=== PATIENT | female | born 1980 | race Caucasian/White ===

== ENCOUNTER → 2020-05-09 09:59 | Outpatient (CLI) | payer OTHER, SELFPAY ==
--- NOTE | ~2020-05-09 | CT_ITS ---
EXAMINATION: CT soft tissue neck w con EXAM DATE: 05/09/2020 12:03 INDICATION: RT side swelling/ mass/ lump of neck marked with tabs. TECHNIQUE: Spiral CT of the neck was performed following intravenous injection of 75 mL Omnipaque 350 . Axial, coronal and sagittal images were reviewed. The dose-length product (DLP) for this examinat ion was 433.54 mGy-cm. The exposure was tailored according to patient size (auto mA exposure control ), and iterative reconstruction (ASIR) was used as additional dose reduction technique. There is no prior study for comparison. FINDINGS: Right posterior lateral neck externally placed marker with normal-appearing underlying subc utaneous fat, musculature. The thyroid gland is unremarkable. The submandibular and parotid glands are symmetric. There is no cervical lymphadenopathy. There are no masses identified. The super ior mediastinum is unremarkable. The airway is unremarkable. Parapharyngeal and pre-glottic fat p lanes are preserved. The opacified vasculature is patent. The orbits are unremarkable. Visualiz ed sinuses and mastoid air cells are well aerated. Lung apices are clear. There is cervical spondy losis. IMPRESSION: Unremarkable CT soft tissue neck w con exam. Reviewed, dictated and finalized at location B. RITY CHECKER
== END ==
PROVIDERS: PCP Family Medicine; Visit Provider Family Medicine
DX: R59.1 Generalized enlarged lymph nodes (principal)
CPT/HCPCS: 70491; Q9967

== ENCOUNTER 2023-05-01 10:39 | Outpatient (CLI) | payer OTHER, SELFPAY ==
--- NOTE | ~2023-05-01 | XR_ITS ---
EXAMINATION: XR shoulder LT min 2V DATE: 05/01/2023 11:12 INDICATION: Adhesive capsulitis of unspecified shoulder. TECHNIQUE: 4 views of left shoulder were obtained. COMPARISON: None. FINDINGS: Bone alignment is normal. No fracture. There is mild osteoarthritis of glenohumeral joint. Acromioclavicular joint is normal. IMPRESSION: 1. Mild left glenohumeral joint osteoarthritis. Reviewed, dictated and finalized at location E.
== END 2023-05-01 10:40 | disposition home or self-care (01) ==
PROVIDERS: PCP Family Medicine; Visit Provider Family Medicine
DX: M75.00 Adhesive capsulitis of unspecified shoulder (principal); M75.102 Unspecified rotator cuff tear or rupture of left shoulder, not specified as traumatic; M12.812 Other specific arthropathies, not elsewhere classified, left shoulder
CPT/HCPCS: 73030

== ENCOUNTER → 2023-05-19 13:31 | Outpatient (CLI) | payer OTHER, SELFPAY ==
--- NOTE | ~2023-05-19 | MM_ITS ---
EXAMINATION: MM screening dipika BI w esther HISTORY: Screening mammogram TECHNIQUE: Craniocaudal and mediolateral oblique 3-D tomosynthesis images were obtained and synthetic 2-D images were generated. CAD analysis was submitted and interpreted. COMPARISON: No prior mammogram is available for comparison at this institution. BREAST PARENCHYMAL COMPOSITION: The breasts are heterogeneously dense, which may obscure small masses . FINDINGS: RIGHT BREAST: No suspicious mass, calcification, or architectural distortion are identified to sugges t malignancy. LEFT BREAST: Asymmetry and indeterminate calcifications are present in the anterior third of the inne r breast best appreciated 5 cm from the nipple on the craniocaudal view. IMPRESSION: 1. Left breast asymmetry and calcifications which may represent the patient's baseline however no com parison is currently available. 2. Comparison with prior mammograms is necessary. BI-RADS Category 0: Incomplete: Needs comparison with prior mammograms. Reviewed, dictated and finalized at location A. STRIAL REHABILITATION CONSULTANT IMPRESSION: 1. Left breast asymmetry and calcifications which may represent the patient's b aseline however no comparison is currently available. 2. Comparison with prior mammograms is necessary. BI-RADS Category 0: Incomplete: Needs comparison with prior mammograms.
== END ==
PROVIDERS: PCP Nurse Practitioner Obstetrics & Gynecology; Visit Provider Nurse Practitioner Obstetrics & Gynecology
DX: Z12.31 Encounter for screening mammogram for malignant neoplasm of breast (principal); R92.8 Other abnormal and inconclusive findings on diagnostic imaging of breast
CPT/HCPCS: 77063; 77067

== ENCOUNTER 2023-07-09 11:06 | Emergency (ER) | payer OTHER, SELFPAY ==
[2023-07-09 11:15] VITALS: BP 120/78; PULSE 76; RESP 18; TEMP 36.1; O2SAT 100
--- NOTE | 2023-07-09 11:19 | ED.URI ---
HPI - URI/Sore Throat General Chief Complaint: Upper Respiratory Infection Stated Complaint: Sore Throat Time Seen by Provider: 07/09/23 11:37 Source: patient and RN notes reviewed Mode of arrival: ambulatory Limitations: no limitations History of Present Illness HPI Narrative: 42-year-old female presents with concern for sore throat and headache for 2 days. Reports she had chills last night. Reports she started coughing today. Reports she has tried DayQuil and NyQuil temporary relief MD elicited complaint: sore throat Related Data Home Medications Medication Instructions Recorded Confirmed levonorgestrel 21 mcg/24 hours (8 1 device intrauterine ONCE 05/01/23 07/09/23 yrs) 52 mg intrauterine device (Mirena) semaglutide (weight loss) 0.25 0.25 mg subcut WEEKLY 05/01/23 07/09/23 mg/0.5 mL subcutaneous pen injector (Wegovy) Allergies Allergy/AdvReac Type Severity Reaction Status Date / Time No Known Allergies Allergy Unverified 07/09/23 11:21 Review of Systems Review of Systems: CONSTITUTIONAL: Report malaise, chills EYES: Denies visual changes, redness, or discharge. ENT: Denies rhinorrhea, congestion, sinus pain, otalgia. Reports sore throat. CARDIOVASCULAR: Denies chest pain, palpitations, or edema. RESPIRATORY: Reports cough. Denies dyspnea. GASTROINTESTINAL: Denies abdominal pain, nausea, vomiting, diarrhea SKIN: Denies rash or itching. MUSCULOSKELETAL: Denies myalgia. NEUROLOGIC: Denies headache. All systems reviewed & are unremarkable except as noted in HPI and below PMFSH Past Medical History Medical History IUD (intrauterine device) in place Surgical History Surgical History Hx of section (~12/12/18) Family History Family History Father Heart disease Hypertension CAD (coronary artery disease) Social History Social History Social History: Smoking status: Never smoker Second hand tobacco smoke exposure: No Alcohol intake: current Alcohol use details: Occasionally Substance use: never Substance use type: does not use Lack of Transportation: No Lack of Food: Never True Current Housing: I Have Housing Concerned About Future Housing: No Difficulty Paying Gas/Electric Bills: No Difficulty Paying for Meds: No Currently Unemployed: No Education: Master's Degree or Higher Difficulty w/ Childcare or Family Care: No Living arrangements: with family Occupation/Education: occupation 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 There is no relevant family history pertinent to the presenting complaint Exam Narrative: GENERAL: Well-appearing, well-nourished, and in no acute distress. HEAD: Normocephalic EYES: PERRLA, conjunctivae clear ENT: Nares clear. Mucous membranes moist. TM pearly kebede with sharp light reflex bilaterally; no tragal tenderness. Oropharynx erythematous without lesions. Tonsils not enlarged and without exudate, no drooling, no hoarseness, no trismus, uvula midline. NECK: Supple. No lymphadenopathy CHEST: Clear to auscultation, breath sounds equal. No wheezing, rhonchi, rales, or stridor. No respiratory distress, speaks in full sentences. HEART: Regular rate and rhythm. No murmur heard. SKIN: Warm, dry, no rash. NEURO: Alert and oriented x3. PSYCH: Normal mood and affect Course Course Emergency Course: Patient is aware of diagnosis, understands and agrees to treatment plan. Anticipatory guidance given. Patient agrees to follow-up as directed and is aware of reasons to seek care at
== END 2023-07-09 11:48 | disposition home or self-care (01) ==
PROVIDERS: Emergency Provider Nurse Practitioner
DX: J06.9 Acute upper respiratory infection, unspecified (principal)
CPT/HCPCS: 87081; 87880; 99213; G0463

== ENCOUNTER 2023-09-14 08:37 | Outpatient (CLI) | payer OTHER, SELFPAY ==
--- NOTE | ~2023-09-14 | MR_ITS ---
EXAMINATION: MR shoulder LT wo con DATE: 09/14/2023 09:00 INDICATION: Left shoulder adhesive capsulitis TECHNIQUE: Magnetic resonance imaging (MRI) of the left shoulder was performed without intravenous co ntrast. Sequences included axial PD-weighted FS FSE, coronal oblique PD-weighted FS FSE, coronal obli que T2-weighted FS FSE, sagittal PD-weighted FS FSE, and sagittal T1-weighted SE. COMPARISON: Left shoulder radiographs dated 05/01/2023 FINDINGS: Coracoacromial arch: The acromion undersurface is flat in morphology (type I). The coracoacromial ligament is normal. Acro mioclavicular joint is normal. Rotator cuff: The supraspinatus, infraspinatus and teres minor tendons are normal. The subscapularis tendon is norm al. Normal rotator cuff muscle bulk and signal. Biceps tendon, glenoid labrum and glenohumeral cartilage: Long head of the biceps tendon is normal. Glenoid labrum is normal. Glenohumeral cartilage is normal. Fluid: Physiologic amount of fluid in the glenohumeral joint and biceps tendon sheath. No loose osteochondr al bodies. No abnormal increased fluid signal in the subacromial/subdeltoid bursa to suggest bursitis . Bones: Normal marrow signal with no edema, fracture or abnormal marrow replacing process. No abnormal thicke lauryn of the capsule at the axillary recess or loss of T1 fat signal at the rotator cuff interval to s uggest adhesive capsulitis which is ultimately a clinical diagnosis. IMPRESSION: 1. Unremarkable MRI of the left shoulder. Reviewed, dictated and finalized at location B.
== END 2023-09-14 08:38 | disposition home or self-care (01) ==
LOC: ANHIMG 08:41
PROVIDERS: PCP Family Medicine; Visit Provider Physician Assistant Surgical
DX: M75.02 Adhesive capsulitis of left shoulder (principal); M75.102 Unspecified rotator cuff tear or rupture of left shoulder, not specified as traumatic; M12.812 Other specific arthropathies, not elsewhere classified, left shoulder
CPT/HCPCS: 73221

== ENCOUNTER 2023-12-25 00:05 | Day surgery (SDC) | payer OTHER, SELFPAY ==
--- NOTE | 2023-12-16 16:10 | PC.NURSE ---
Report to the Outpatient Waiting Room, entrance under the green pavilion located off [facility], at time 1000 on date 12/25/23. Planned Procedure Time: 1200. Time changes happen often and if your time is changed the preop area will call you the afternoon before. - You and your visitor will be asked to self-screen and do not enter if you have any COVID symptoms. - A mask is optional within the hospital at this time. Patients may have clear liquids (water, carbonated beverages, clear teas, apple juice) until 3 hours prior to surgery with a maximum of 20 ounces. 0900 - No food from midnight until time of surgery - Infants may have breast milk until 4 hours before surgery, formula 6 hours prior to surgery. - Children will be allowed to drink immediately following surgery. If applicable, please bring a bottle or sippy cup to assist with drinking. Juice, water, soda, and popsicles are readily available. For infants on formula, please bring formula the day of surgery. Pacifiers are allowed. Take the following medications with a SIP of water the morning of surgery: None DO NOT STOP ANY OF YOUR OTHER PRESCRIPTION MEDICATIONS PRIOR TO SURGERY ?EXCEPT THE FOLLOWING Medications to discontinue per physician semaglutide- hold 10 days prior to surgery, multivitamins- hold 3 days prior to surgery Please no make-up, nail thai, hairspray, perfume, deodorant, or body powder the day of surgery. No jewelry (including any body piercings) or valuables the day of surgery, leave them at home. Please take a shower or bath the night before, or the morning of, surgery with an antibacterial soap. Wear comfortable, loose fitting clothing. Children are encouraged to wear pajamas. - Jewelry must be removed prior to entering the operating room. Rings and piercings that are not removed may be cut off. - The hospital will not accept responsibility for valuables. - Please leave all valuables, including medications, at home the day of surgery. If you are going home after surgery, a licensed industrial truck driver must drive you home. - NO public transportation without another adult if you receive anesthesia. - We recommend that an adult stay with you for 24 hours following discharge. - We also recommend that you do not drive, make important decision, drink alcoholic beverages, or take any drugs that were not prescribed by your health care provider for at least 24 hours after your discharge time. For Pediatric surgeries, we recommend two adults accompany the child home. Follow any additional instructions given to you from your surgeon. If you or anyone in your household have experienced Covid symptoms in the past week, please notify your surgeon or the nurse liaison at the phone number below for possible testing. Telephone instructions given to Patient- Wendy Tabor and asked if any additional questions and then verbalized understanding. Patient advised to call surgeon office or pre surgery nurse liaison [phone] if any additional questions.
[2023-12-16 16:16] VITALS: BMI 26.8
[2023-12-25] VITALS (8 sets, daily range): BP systolic 99–111; BP diastolic 61–75; PULSE 71–82; RESP 12–20; TEMP 36.1–36.3; O2SAT 96–100
[2023-12-25] MEDS: ACETAMINOPHEN 500 MG TABLET 1000 MG PO (11:11)
[2023-12-25] MEDS: KETOROLAC 15 MG/ML VIAL (*BKC) IV PUSH (11:12)
[2023-12-25] MEDS: LACTATED RINGERS 1,000 ML 30 ML IV CONT ×2 (11:13→13:35)
--- NOTE | 2023-12-25 11:22 | WPDANESEPPF ---
Anes - Initial Pre Proc Eval Procedure: Operation Date: 12/25/23 12:00 Proposed Procedures p Left Shoulder Arthroscopy, with Capsular Release and Manipulation - Teddy Abreu MD Date/Time: 12/25/23 11:22 Surgeon: Teddy Abreu MD Pre Op Diagnosis: left shoulder adhesive capsulitis Patient Data Age: 43 Gender: F Height: 1.63 m Weight: 72.6 kg Last Vital Signs Temp 97.3 F L 12/25/23 10:11 Pulse 80 12/25/23 10:11 Resp 16 12/25/23 10:11 BP 104/61 12/25/23 10:11 Pulse Ox 99 12/25/23 10:11 O2 Del Method Room Air 12/25/23 10:11 Allergies Allergy/AdvReac Type Severity Reaction Status Date / Time No Known Allergies Allergy Verified 12/25/23 10:08 Home Medications Medication Instructions Recorded Confirmed Type levonorgestrel 21 mcg/24 hr (up to 1 device intrauterine ONCE 05/01/23 12/16/23 History 8 years) 52 mg intrauterine device (Mirena) semaglutide (weight loss) 0.25 0.25 mg subcut WEEKLY 05/01/23 12/16/23 History mg/0.5 mL subcutaneous pen injector (Wegovy) multivit with minerals-iron 18 1 tablet PO DAILY 12/16/23 12/25/23 History mg-folic ac 400 mcg-vit K 25 mcg tablet (Adults Multivitamin) Patient hx anesthesia problems: none Family hx anesthesia problems: none Results Review: All pre-operative results and documents have been reviewed as part of the pre-operative evaluation. [facility] Past Medical History Medical History IUD (intrauterine device) in place Surgical History Surgical History Hx of section (~12/12/18) Family History Family History Father Heart disease Hypertension CAD (coronary artery disease) Social History Social History Social History: Smoking status: Never smoker Second hand tobacco smoke exposure: No Alcohol intake: current Drinks per week: 4 Alcohol use details: Occasionally Substance use: never Substance use type: does not use Lack of Transportation: No Lack of Food: Never True Current Housing: I Have Housing Concerned About Future Housing: No Difficulty Paying Gas/Electric Bills: No Difficulty Paying for Meds: No Currently Unemployed: No Education: Master's Degree or Higher Difficulty w/ Childcare or Family Care: No Living arrangements: with family Occupation/Education: occupation 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 ) Neurological: alert and oriented Last oral intake: >/= 8 hours ASA classification: II Emergent: no Anesthetic plan: proceed Anesthesia type and monitoring: general ETT and standard monitoring Results Review: All pre-operative results and documents have been reviewed as part of the pre-operative evaluation. Pt active w workouts, wts and light cardio, no cp or sob. Informed Consent: The patient's anesthetic plan and its attendant risks and benefits were discussed with the patient/family/POA. Questions were solicited and answers provided to the satisfaction of the patient/family/POA.
--- NOTE | 2023-12-25 11:41 | WPDHPUPDATE1 ---
History and Physical Update Update Date/Time: 12/25/23 11:41 History and Physical has been reviewed, including an updated exam of the patient. There are NO changes in the patient's condition. Risks, benefits, and alternatives have been discussed and questions answered. Patient agrees to proceed with procedure.
[2023-12-25] MEDS: ceFAZolin 2 GM/D5W 50 ML 2 GM/50 ML BAG IVPB (12:18)
[2023-12-25] MEDS: BUPIVACAINE/EPINEPHRINE 0.5% 10 ML VIAL 20 ML INFILTRATE (12:40)
[2023-12-25] MEDS: EPINEPHrine HCL INJ 1 MG/ML AMPUL 3 MG IRRIGATION (12:40)
--- NOTE | 2023-12-25 13:28 | W.PM.PROC2 ---
Procedure Note - Detailed Date of Procedure 12/25/23 Pre-op Diagnosis Left shoulder adhesive capsulitis Post-op Diagnosis Same Procedure Performed Arthroscopic capsule release left shoulder. Surgeon Teddy Abreu MD Talent Development Analyst Nancy Clemente PA-C Anesthesia General Findings Severe contracture confirmed.Normal shoulder range of motion 180? flexion, 130? abduction, external rotation 90?, internal rotation 80?. Preoperative range of motion. Flexion 130? to 165?. External rotation 30? to 70?. Internal rotation 20? to 60?. Abduction 80? to 100?. The intra-articular tissues were otherwise normal. Description of Procedure Preoperative antibiotics were given. An interscalene block was performed. The patient was brought to the operating room, and carefully placed in the beach chair position. The head neck were carefully positioned. Examination under anesthesia revealed severe tightness of the shoulder with marked limitation in movement. The shoulder required manipulation prior to introduction of the cannula. Inspection revealed significant capsulitis. The articular cartilage was intact. The capsule was very thickened and tight. The labrum and biceps were intact. The rotator cuff appeared normal. An accessory anterosuperior cannula was created. The tissue resection device was used to remove the rotator interval tissue. The anterior and inferior capsule was released with the hook probe. The camera was switched to the anterior portal. The posterior capsule was then resected in a similar fashion. Particularly care was taken in the axillary pouch. At this point the glenohumeral articulation was much less stiff. The arthroscopic instruments were removed. Manipulation was then performed in the typical manner. Motion was greatly improved. The wounds were closed with interrupted 4-0 Monocryl suture followed by Steri-Strips. The patient was extubated and brought to recovery room in stable condition. There were no complications. Estimated Blood Loss 10 Drains No Packing No Pathology None sent Complications No immediate complications Condition Stable Disposition PACU [facility] Billing Surgery - Charge Forward: Surgery Billing
[2023-12-25] MEDS: fentaNYL CITRATE INJ (*CRX) 100 MCG/2 ML VIAL 25 MCG IV PUSH ×4 (13:45→14:19)
[2023-12-25] MEDS: oxyCODONE HCL (*CRX) 5 MG TAB IR PO (14:54)
== END 2023-12-25 15:28 | disposition home or self-care (01) ==
PROVIDERS: PCP Family Medicine; Visit Provider Orthopaedic Surgery
PROC: (CPT 29805; principal; 2023-12-25 12:00)
DX: M75.02 Adhesive capsulitis of left shoulder (principal); Z79.85 Long-term (current) use of injectable non-insulin antidiabetic drugs
CPT/HCPCS: 29825; A4565; A9270; J0171; J0690; J1100; J1885; J2250; J2371; J2405; J2704; J3010; J7120